=== PATIENT | male | born 1975 | race Caucasian/White ===

== ENCOUNTER → 2018-07-06 | Outpatient (CLI) | payer OTHER ==
[~2018-07-06] MED LIST: ASPI-757 PO; CYCL10TA29 GT; FAMO20TA28 PO; FLU10 PO; FLUO40CA76 PO; ONDA4TAB9 PO; OXYC1TAB54 GT; PANT40TA65 PO; PER PO; PROM-110 PO; PROM25SU8 RC; SUCR1TAB51 PO; VAR05PT PO; VARE1TAB3 PO; VARE1TAB4 PO
[2018-07-06 16:10] LABS: PLATELET COUNT, AUTOMATED 189 K/uL (150-450)
[2018-07-06 20:28] LABS: LDL CHOLESTEROL 118 mg/dl
== END ==
LOC: LAB 15:48
PROVIDERS: ATTEND Nurse Practitioner Family
DX: Z00.00 Encounter for general adult medical examination without abnormal findings (principal); R03.0 Elevated blood-pressure reading, without diagnosis of hypertension
CPT/HCPCS: 36415; 82040; 82247; 82310; 82374; 82435; 82465; 82565; 82947; 83718; 84075; 84132; 84155; 84295; 84443; 84450; 84460; 84478; 84520; 85025